=== PATIENT | male | born 1975 | race Caucasian/White ===

== ENCOUNTER 2024-12-30 12:57 | Inpatient (IN) | payer BC, SELFPAY ==
[2024-12-30 12:58] VITALS: BP 131/84; PULSE 65; RESP 16; TEMP 36.6; O2SAT 98; BMI 26.2
--- NOTE | 2024-12-30 13:23 | EX.ED.SAOD ---
HPI History of Present Illness Chief Complaint: Substance Abuse Informant: patient and family (Patient accompanied by his sister.) Onset/Context/Timing Onset: - (Many years.) Context: Gradual Onset Timing: Continuous Current Severity: Moderate Maximum Severity: Moderate Narrative Narrative: 49-year-old male history of alcohol abuse for many many years. Went through inpatient admission to [facility] hyponatremia and detox in the September 22 week of October. He started using again he primarily drinks vodka about a gallon a week or so. He came in today to get detox. Prior similar symptoms: Yes Recent Illness/Hospitalization: Yes PFSH PFS Medical History Depression Anxiety Alcohol abuse Home Medications ?Medication ?Instructions ?Recorded ?Last Taken ?Type clonidine HCl 0.1 mg tablet 0.1 mg PO QHS sleep 12/30/24 12/29/24 History lansoprazole 30 mg capsule,delayed 30 mg PO DAILY gerd 12/30/24 12/30/24 History release olmesartan 20 mg tablet 20 mg PO DAILY blood pressure 12/30/24 12/30/24 History propranolol 80 mg capsule,24 80 mg PO DAILY blood pressure 12/30/24 12/30/24 History hr,extended release sertraline 50 mg tablet 50 mg PO DAILY depression 12/30/24 12/30/24 History trazodone 50 mg tablet 50 mg PO QHS sleep 12/30/24 12/29/24 History Allergy/AdvReac Type Severity Reaction Status Date / Time No Known Allergies Allergy Verified 12/30/24 12:59 Social History Smoking Status: Unknown if ever smoked ROS ROS ED ROS Narrative Denies recent illness. Constitutional Constitutional ED: Denies chills or fever(s) ENT ENT ED: Denies ear pain Cardiovascular Cardiovascular: Denies chest pain Respiratory/Chest Respiratory/Chest: Denies cough or dyspnea Gastrointestinal Gastrointestinal: Denies abdominal pain, diarrhea, melena, nausea or vomiting Genitourinary Genitourinary ED: Denies dysuria Musculoskeletal Musculoskeletal: Denies arthralgias Integumentary Denies abscess Neurologic Neurologic: Denies headache(s) Psychiatric Psychiatric: Denies anxiety Endocrine Endocrinology: Denies cold intolerance Hematologic/Lymphatic Hematologic/Lymphatic: Denies easy bleeding Allergic/Immunologic Allergic/Immunologic ED: Denies mouth swelling EXAM Physical Exam Narrative Exam Narrative: 49-year-old male no acute distress vital signs stable afebrile. Sister in the room with him. H EENT exam pupils round reactive light. Extra motions are intact. Neck nontender. Lungs clear to auscultation bilaterally. Heart regular rate and rhythm rate about 65 no murmur. Chest wall ribs nontender. Abdomen soft nontender. No peritoneal signs. Moving all 4 extremities. Calves are nontender without edema or cords. Neurologically is awake and alert no focal motor deficits. Answer questions following commands. He ambulated the hallway without any difficulty he was walking back from the bathroom when I entered the room. Const Vital Signs: 12/30/24 12:58 12/30/24 13:57 Temperature 97.8 F Temperature Source Oral Pulse Rate 65 66 Respiratory Rate 16 18 Blood Pressure 131/84 H 130/85 H Blood Pressure Mean 99 100 Pulse Ox 98 99 Oxygen Delivery Method Room Air Room Air Positive well nourished and well developed; Negative for obese, cachectic, contractures or unkempt General Appearance ED: well developed and NAD; Negative for unkempt, cachectic, contractures or pallor Nutritional Appearance: Negative for cachectic or obese HEENT Reports moist mucous membranes atraumatic; Negative for trauma or tenderness Eyes PERRL and EOMs intact bilaterally General Eye ED: Negative for pale conjunctiva or scleral icterus Neck no lymphadenopathy, supple and no JVD Thyroid: Negative for tender Lymph Lymphatic: no lymphadenopathy noted; Negative for lymphadenopathy Chest Wall inspection of chest normal and palpation of chest normal Resp normal respiratory effort and clear to auscultation bilaterally Effort and Inspection: Negative for retractions Auscultation: Negative for rales, rhonchi, wheezes or diminished lung sounds Cardio regular rate, regular rhythm, S1 normal heart sound, S2 normal heart sound and no murmurs Rate: Negative for bradycardia or tachycardic Rhythm: Negative for abnormal rhythm Bruits: Negative for other GI soft to palpation, non-tender, non-distended and no masses Palpation: Negative for tender, guarding, rigid or mass Back/Spine no CVA tenderness General Back: Negative for CVA tenderness Cervical Spine: Negative for cervical spine tenderness Thoracic Spine / Upper Back: Negative for thoracic spinal tenderness Lumbar Spine / Lower Back: Negative for lumbar spinal tenderness Coccyx: Negative for swelling Extremity General Extremety ED: Negative for edema or tenderness General Extremity: Negative for edema Neuro oriented x3 and CN's II-XII intact bilaterally Sensorium / Orientation: alert, oriented to person, oriented to place and oriented to time; Negative for confused, lethargic or stuporous Speech: speech normal Motor Exam: strength 5/5 throughout Psych mental status grossly normal and thought process normal Appearance: Negative for unkempt Attitude: No belligerent, No agitated, No aggressive and No hostile Mood & Affect: Negative for depressed, anxious or tearful Skin General Skin Exam: Negative for jaundice or pallor Lesions: no lesions Rashes: no rashes MDM MDM MDM Narrative Medical decision making narrative: 41-year-old male history of alcohol abuse. Requesting detox. Screening labs will be obtained. Exam benign. Have the hospitalist on page for admission. Patient doing well at 2:52 PM. Will be admitted. History & Record Review Discussion w/independent historian: Patient and Family Additional record(s) reviewed:: No prior records Lab Data Attestation: I reviewed the patient's lab results. Lab results narrative: CBC normal. White count of 5. H&H 15 and 45. Platelets 266. Electrolytes show gap 12. BUN of 5 creatinine 0.6. Sodium normal 139. Liver enzymes unremarkable. Urine tox positive for cannabis. Alcohol 296. Likely intoxicated. Labs: Laboratory Results - last 24 hr 12/30/24 12/30/24 13:45 14:10 WBC 5.3 RBC 4.78 Hgb 15.5 Hct 45.7 MCV 95.6 H MCH 32.4 H MCHC 33.9 RDW Std Deviation 42.3 RDW Coeff of [place] 12.0 Plt Count 266 MPV 10.0 Immature Gran % (Auto) 0.800 Neut % (Auto) 57.5 Lymph % (Auto) 30.6 [place] % (Auto) 9.3 Eos % (Auto) 0.9 Baso % (Auto) 0.9 Absolute Neuts (auto) 3.0 Absolute Lymphs (auto) 1.62 Nucleated RBC % 0 Sodium 139 Potassium 4.0 Chloride 104 Carbon Dioxide 23.0 Anion Gap 12 BUN 5 L Creatinine 0.61 L Estim Creat Clear Calc 167.37 Est GFR (MDRD) Af Amer 182 Est GFR (MDRD) Non-Af 150 BUN/Creatinine Ratio 8.2 L Glucose 103 Calcium 8.7 Total Bilirubin 0.40 AST 38 H ALT 49 Alkaline Phosphatase 84 Total Protein 7.5 Albumin 4.0 Globulin 3.5 Albumin/Globulin Ratio 1.1 Urine Opiates Screen NEGATIVE Urine Methadone Screen NEGATIVE Ur Barbiturates Screen NEGATIVE Ur Phencyclidine Scrn NEGATIVE Ur Amphetamines Screen NEGATIVE MDMA (Ecstasy) Screen NEGATIVE U Benzodiazepines Scrn NEGATIVE Urine Cocaine Screen NEGATIVE U Cannabinoids Screen POSITIVE H Ur Drug Screen Comment Ethyl Alcohol 296.0 Discharge Plan Triage Chief Complaint: Substance Abuse ED Provider: Evans Gresham Dx/Rx/DC Orders Clinical Impression: Alcohol abuse, Admitted to alcohol detoxification center, Alcohol intoxication, History of hypertension Primary Care Provider: Freddie Hartman Disposition Disposition: Acute Care Hospital [facility]
[2024-12-30 13:57] VITALS: BP 130/85; PULSE 66; RESP 18; O2SAT 99
[2024-12-30 14:09] LABS: Absolute Lymphocyte Count 1.62 X10^3/uL (0.83-4.51); Basophil# 0.05 X10^3/uL; Basophil% 0.9 % (0-1); Eosinophil# 0.05 X10^3/uL; Eosinophils% 0.9 % (0-5); Hematocrit 45.7 % (40-54); Hemoglobin 15.5 g/dL (13.0-16.5); Lymphocyte # 1.62 X10^3/ul (0.83-4.51); Lymphocyte % 30.6 % (19-41); Mean Corp Hgb Conc 33.9 g/dL (32-36); Mean Corpuscular Hgb 32.4 pg (27.0-32.0); Mean Corpuscular Volume 95.6 fL (80-94); Monocyte# 0.49 X10^3/uL; Monocyte% 9.3 % (0-10); NRBC Flagged by Analyzer 0 % (0-5); Neutrophil # 3.04 X10^3/uL (2.7-7.7); Neutrophil % 57.5 % (47-70); Platelet Count 266 K/mm3 (150-450); RBC Distribution Width SD 42.3 fl (35.1-43.9); Red Blood Count 4.78 M/mm3 (4.6-6.2); White Blood Count 5.3 K/mm3 (4.4-11.0)
[2024-12-30 14:21] LABS: ALB/GLOB Ratio 1.1 RATIO (0.9-2.4); AST(SGOT) 38 U/L (15-37); Alanine Aminotransfer ALT/SGPT 49 U/L (16-61); Alkaline Phosphatase 84 U/L (45-117); Anion Gap 12 (5-15); BUN 5 mg/dL (7-18); BUN/Creat Ratio 8.2 RATIO (10-20); Calcium,Total 8.7 mg/dL (8.5-10.1); Chloride 104 mmol/L (98-107); Creatinine, Serum 0.61 mg/dL (0.70-1.30); EST Glomerular Filtration Rate 150 mL/min (>60); Est Glom Filt Rate - Afr Amer 182 mL/min (>60); Estimated Creatinine Clearance 167.37 ml/min; Globulin 3.5 g/dL (2.2-4.2); Glucose 103 mg/dL (74-106); Protein, Total 7.5 g/dL (6.4-8.2); Sodium Level 139 mmol/L (136-145)
--- NOTE | 2024-12-30 14:24 | PCM.HP.STD ---
HPI - General General Date of Admission: 12/30/24 Date of Service: 12/30/24 Chief Complaint: etoh detox HPI Narrative BRIAN GOMEZ, is a 49-year-old male with a history of hyponatremia, GERD, hypertension, depression, and alcohol use presented [facility] ED 12/30/2024 requesting alcohol detox. He has been drinking since high school and drinks about a gallon of vodka per week, went through detox in [place] and was treated for hyponatremia back in October at the same time however resumed drinking. Hospitalist contacted for admission. Patient evaluated with sister at bedside, patient reportedly in [facility] outpatient rehab however has been drinking roughly a gallon a week and his last drink was at noon, reports when he went through detox in October he felt shaky and anxious but denies any withdrawal seizures. Currently has no physical complaints. [facility] Medical History (Updated 12/30/24 @ 14:[address] Madie Armenta MD) Alcohol abuse Anxiety Depression Allergy/AdvReac Type Severity Reaction Status Date / Time No Known Allergies Allergy Verified 12/30/24 12:59 ROS ROS Narrative General: Denies fever/chills HENT: Denies headache, denies stuffy nose, denies sore throat EYES: Denies changes in vision Resp: Denies cough, denies shortness of breath Cardiac: Denies chest pain GI: Denies abdominal pain, denies changes in bowel, denies nausea/vomiting : Denies changes in urination Extremity: Denies swelling MSK: Denies weakness Neuro: Denies any numbness/tingling Heme: Denies any bleeding or bruising Skin: Denies rashes Psychiatric: Recent stressors Vital Signs Vital Signs Vital Signs: 12/30/24 12:58 Temperature 97.8 F Temperature Source Oral Pulse Rate 65 Respiratory Rate 16 Blood Pressure 131/84 H Blood Pressure Mean 99 Pulse Ox 98 Oxygen Delivery Method Room Air Weight Weight: 90.038 kg Body Mass Index (BMI) 26.2 Physical Exam Narrative General: Alert, oriented, no apparent distress HEENT: Atraumatic, normocephalic Eyes: Anicteric, normal conjunctiva, extraocular movements grossly intact Neck: Supple Respiratory: Clear to auscultation bilaterally, normal respiratory effort Cardiovascular: Regular rate and rhythm GI: Soft, nontender, nondistended Extremities: No edema Musculoskeletal: Moving all extremities Neuro: No overt focal neurological deficits Skin: No rashes appreciated Psych: Cooperative Results Lab / Micro Data 12/30/24 13:45 12/30/24 13:45 Labs: Laboratory Results - last 24 hr 12/30/24 13:45: WBC 5.3, RBC 4.78, Hgb 15.5, Hct 45.7, MCV 95.6 H, MCH 32.4 H, MCHC 33.9, RDW Std Deviation 42.3, RDW Coeff of Eugene 12.0, Plt Count 266, MPV 10.0, Immature Gran % (Auto) 0.800, Neut % (Auto) 57.5, Lymph % (Auto) 30.6, [place] % (Auto) 9.3, Eos % (Auto) 0.9, Baso % (Auto) 0.9, Absolute Neuts (auto) 3.0, Absolute Lymphs (auto) 1.62, Nucleated RBC % 0, Sodium 139, Potassium 4.0, Chloride 104, Carbon Dioxide 23.0, Anion Gap 12, BUN 5 L, Creatinine 0.61 L, Estim Creat Clear Calc 167.37, Est GFR (MDRD) Af Amer 182, Est GFR (MDRD) Non-Af 150, BUN/Creatinine Ratio 8.2 L, Glucose 103, Calcium 8.7, Total Bilirubin 0.40, AST 38 H, ALT 49, Alkaline Phosphatase 84, Total Protein 7.5, Albumin 4.0, Globulin 3.5, Albumin/Globulin Ratio 1.1 12/30/24 14:10: Ur Drug Screen Comment Assessment & Plan Assessment/Plan (1) Alcohol abuse: (2) GERD (gastroesophageal reflux disease): (3) Depression: (4) HTN (hypertension): PLAN: Plan #Alcohol use disorder - We will begin CIWA every 4 for 24 hours, then every 6 for 24 hours, then every 12 until discharge -Will begin phenobarbital taper -Gabapentin 300 mg every 8 as needed -Will start Bentyl and hydroxyzine as needed as well as loperamide as needed -Trazodone 100 mg p.o. nightly as needed sleep -Begin thiamine and folic acid supplementation -Zofran as needed for nausea -Case management consult to assist with discharge planning -EtOH pending, last drink at noon -UDS pending, patient reports occasional THC use but denies any other substance use -Patient does presently follow with [facility] outpatient rehab in [place] #Hypertension -Continue home ARB #Depression/anxiety -Continue home medications #GERD -Continue PPI #DVT ppx: Low risk, ambulatory Madie Armenta MD Time spent in the patient's overall evaluation,decision-making process, review of diagnostic data, adjustment of management, discussion with other providers, nursing nursing and ancillary staff involved in patient's care documentation, 56 Minutes Charges/Coding Visit Charges Inpatient E&M: 04775 Init Hosp L2
[2024-12-30 14:42] LABS: Amphetamine Urine NEGATIVE (<1000 ng/mL); Barbiturate Urine VISTA NEGATIVE (< 200 ng/mL); Benzodiazepine Urine VISTA NEGATIVE (< 200 ng/mL); Cocaine Urine VISTA NEGATIVE (< 300 ng/mL); Ecstacy Urine VISTA NEGATIVE (< 500 ng/mL); Methadone Urine VISTA NEGATIVE (< 300 ng/mL); PCP Urine VISTA NEGATIVE (< 25 ng/mL); THC Urine VISTA POSITIVE (< 50 ng/mL); Vista UDS pH Range 6
[2024-12-30 14:44] VITALS: BP 131/65; PULSE 69; RESP 18; TEMP 36.7; O2SAT 100
[2024-12-30 15:27] VITALS: BP 117/75; PULSE 79; RESP 16; TEMP 36.6; O2SAT 95; BMI 26.2
[2024-12-30] MEDS: Phenobarbital 32.4 MG Tablet 64.8 MG PO ×2 (16:07→20:01)
[2024-12-30 16:43] LABS: Prothrombin Time (Protime)PT. 12.9 SECONDS (11.7-14.9)
--- NOTE | 2024-12-30 17:59 | ADDICTION ---
Pt was met with to complete the RAMP assessment, ASAM, DUDIT, AUDIT, TUAN, MSE, and D/C Plan. Pt presents as cooperative w/good insight into his need for follow up care after d/c from detox. Pt states he is uncertain if he wants to enter residential at this time. Pt was provided psychoeducation on his tx options an pt states he is leaning towards residential but I need more time to think about it. Pt was informed that [facility] with check in with him on Wednesday. Pt is at minimum, returning to the home he owns in [place] and following up with psychiatry at [place] [id number], AA meetings, and outpatient services through current provider Bernabe. Pt was proved a packet of information and contact info for 24hr hotlines, PSS hotline, and admission number for [facility]. Pt's sister to transport him home.
[2024-12-30 20:00] VITALS: BP 108/62; PULSE 73; RESP 16; TEMP 36.7; O2SAT 92
[2024-12-30] MEDS: cloNIDine HCl 0.1 MG Tablet PO (21:56)
[2024-12-30] MEDS: traZODone 50 MG Tablet PO (21:56)
[2024-12-31 03:55] VITALS: BP 144/100; PULSE 65; RESP 16; TEMP 36.4; O2SAT 97
[2024-12-31] MEDS: Phenobarbital 32.4 MG Tablet 64.8 MG PO ×5 (04:15→20:32)
[2024-12-31 08:28] VITALS: BP 156/95; PULSE 64; RESP 18; TEMP 36.7; O2SAT 98
[2024-12-31] MEDS: Sertraline 50 MG Tablet PO (08:32)
[2024-12-31] MEDS: Thiamine Hydrochloride 100 MG Tablet PO (08:33)
[2024-12-31] MEDS: Losartan Potassium 50 MG Tablet PO (08:33)
[2024-12-31] MEDS: Lansoprazole 15 MG Capsule.DR 30 MG PO (08:33)
[2024-12-31] MEDS: Folic Acid 1 MG Tablet PO (08:33)
[2024-12-31] MEDS: Propranolol LA 80 MG Capsule PO (08:33)
--- NOTE | 2024-12-31 10:47 | PN_ITS ---
Subjective Subjective Patient seen and examined. He is of shakes and tremors as well as anxiety due to alcohol withdrawal. His blood pressure is elevated at 156/95 this morning. Review of systems otherwise negative. Objective Data Objective Data Vital Signs: Vital Signs Temp Pulse Resp BP Pulse Ox O2 Del Method 98.1 F 64 18 156/95 H 98 Room Air 12/31/24 08:28 12/31/24 08:28 12/31/24 08:28 12/31/24 08:28 12/31/24 08:28 12/31/24 08:28 Oxygen Delivery Method Room Air Weight: 198 lb 8 oz Body Mass Index (BMI) 26.2 Intake & Output: Intake and Output for Last 24 Hours 12/29/24 12/30/24 12/31/24 23:59 23:59 23:59 Intake Total 800 / 800 Balance 800 / 800 Lab / Micro Data 12/30/24 13:45 12/30/24 13:45 Labs: Laboratory Results - last 24 hr 12/30/24 13:45: WBC 5.3, RBC 4.78, Hgb 15.5, Hct 45.7, MCV 95.6 H, MCH 32.4 H, MCHC 33.9, RDW Std Deviation 42.3, RDW Coeff of Eugene 12.0, Plt Count 266, MPV 10.0, Immature Gran % (Auto) 0.800, Neut % (Auto) 57.5, Lymph % (Auto) 30.6, [place] % (Auto) 9.3, Eos % (Auto) 0.9, Baso % (Auto) 0.9, Absolute Neuts (auto) 3.0, Absolute Lymphs (auto) 1.62, Nucleated RBC % 0, Sodium 139, Potassium 4.0, Chloride 104, Carbon Dioxide 23.0, Anion Gap 12, BUN 5 L, Creatinine 0.61 L, Estim Creat Clear Calc 167.37, Est GFR (MDRD) Af Amer 182, Est GFR (MDRD) Non-Af 150, BUN/Creatinine Ratio 8.2 L, Glucose 103, Calcium 8.7, Total Bilirubin 0.40, AST 38 H, ALT 49, Alkaline Phosphatase 84, Total Protein 7.5, Albumin 4.0, Globulin 3.5, Albumin/Globulin Ratio 1.1, Ethyl Alcohol 296.0 12/30/24 14:10: Urine Opiates Screen NEGATIVE, Urine Methadone Screen NEGATIVE, Ur Barbiturates Screen NEGATIVE, Ur Phencyclidine Scrn NEGATIVE, Ur Amphetamines Screen NEGATIVE, MDMA (Ecstasy) Screen NEGATIVE, U Benzodiazepines Scrn NEGATIVE, Urine Cocaine Screen NEGATIVE, U Cannabinoids Screen POSITIVE H, Ur Drug Screen Comment 12/30/24 16:13: PT 12.9, INR 1.0 Physical Exam Const alert and oriented x3 Constitutional Narrative: mildly anxious HEENT normocephalic, head/scalp atraumatic, moist oral mucous membranes, oropharynx normal and gingiva normal Eyes PERRL and EOMs intact bilaterally Neck no lymphadenopathy, supple and no JVD Lymph Lymphatic: no lymphadenopathy noted and no lymphedema noted Resp normal respiratory effort, normal air movement and clear to auscultation bilaterally Cardio regular rate, regular rhythm, S1 normal heart sound, S2 normal heart sound and no murmurs GI normal to inspection, nondistended, normoactive bowel sounds, soft to palpation, non-tender and non-distended Extremity normal capillary refill, no clubbing, cyanosis or edema and no calf tenderness General Extremity: no tenderness to palpation of joints or extremities Skin General Skin Exam: no breakdown Neuro CN's II-XII intact bilaterally, no focal motor deficits and no sensory deficits noted Motor Exam: strength 5/5 throughout and general weakness Psych thought process normal and cooperative Appearance: appropriate Assessment & Plan Assessment/Plan (1) Alcohol intoxication: (2) Depression: (3) GERD (gastroesophageal reflux disease): (4) History of hypertension: PLAN: Plan #Acute alcohol withdrawal * Complains of anxiety and tremors. Says she drinks about a gallon of vodka per week with his last drink being the day of admission. * On alcohol drawl protocol with phenobarbital. Monitor CIWA score. * On thiamine, folic acid and Multi-Arnulfo. Adjunctive meds for symptomatic relief. * #Hypertension: On olmesartan and propranolol #Depression and anxiety: On sertraline and trazodone #GERD: on lansoprazole. DVT prophylaxis: Low risk. Encourage ambulation. Charges/Coding Visit Charges Inpatient E&M: 07546 Subs Hosp L2
[2024-12-31 12:13] VITALS: BP 132/88; PULSE 79; RESP 16; TEMP 36.3; O2SAT 96
[2024-12-31 17:06] VITALS: BP 148/99; PULSE 72; RESP 16; TEMP 36.8; O2SAT 99
[2024-12-31] MEDS: cloNIDine HCl 0.1 MG Tablet PO (22:34)
[2024-12-31] MEDS: traZODone 50 MG Tablet PO (22:34)
[2024-12-31 23:07] VITALS: BP 135/88; PULSE 98; RESP 16; TEMP 36.8; O2SAT 98
[2025-01-01] MEDS: Phenobarbital 32.4 MG Tablet 64.8 MG PO ×5 (00:22→15:38)
[2025-01-01 04:10] VITALS: BP 151/98; PULSE 63; RESP 15; TEMP 36.1; O2SAT 98
[2025-01-01 04:14] VITALS: BP 151/98; PULSE 63; RESP 15; TEMP 36.1; O2SAT 98
[2025-01-01 08:00] VITALS: BP 148/104; PULSE 67; RESP 14; TEMP 36.8; O2SAT 98
[2025-01-01] MEDS: hydrOXYzine PAM 25 MG Capsule 50 MG PO ×2 (08:31→15:38)
[2025-01-01] MEDS: Sertraline 50 MG Tablet PO (08:43)
[2025-01-01] MEDS: Folic Acid 1 MG Tablet PO (08:43)
[2025-01-01] MEDS: Lansoprazole 15 MG Capsule.DR 30 MG PO (08:43)
[2025-01-01] MEDS: Thiamine Hydrochloride 100 MG Tablet PO (08:43)
[2025-01-01] MEDS: Propranolol LA 80 MG Capsule PO (08:44)
[2025-01-01] MEDS: Losartan Potassium 50 MG Tablet PO (08:44)
--- NOTE | 2025-01-01 08:59 | PCM.PN.HOSP ---
Reason for Visit Reason for Visit: Diagnoses Alcohol abuse, uncomplicated (12/30/24) Alcohol use, unspecified with intoxication, unspecified (12/30/24) Depression, unspecified (12/30/24) Essential (primary) hypertension (12/30/24) Gastro-esophageal reflux disease without esophagitis (12/30/24) Personal history of other diseases of the circulatory system (12/30/24) Subjective Subjective Feeling better today, but not back to baseline yet. Objective Data Objective Data Vital Signs: Vital Signs Temp Pulse Resp BP Pulse Ox O2 Del Method 36.8 C 67 14 148/104 H 98 Room Air 01/01/25 08:00 01/01/25 08:00 01/01/25 08:00 01/01/25 08:00 01/01/25 08:00 01/01/25 08:00 Oxygen Delivery Method Room Air Weight: 90.038 kg Body Mass Index (BMI) 26.2 Intake & Output: Intake and Output for Last 24 Hours 12/30/24 12/31/24 01/01/25 23:59 23:59 23:59 Intake Total 1600 / 1900 750 / 750 Balance 1600 / 1900 750 / 750 Lab / Micro Data 12/30/24 13:45 12/30/24 13:45 Physical Exam Const alert and no apparent distress HEENT head/scalp atraumatic Assessment & Plan Assessment/Plan (1) Alcohol intoxication: PLAN: Phenobarbital taper. Thiamine and folate. Pt to go to residential program today.
[2025-01-01 11:22] VITALS: BP 145/98; PULSE 75; RESP 16; TEMP 36.6; O2SAT 98
[2025-01-01] MEDS: Gabapentin 300 MG Capsule PO (11:31)
[2025-01-01] MEDS: Acetaminophen 325 MG Tablet 650 MG PO (11:31)
--- NOTE | 2025-01-01 12:13 | ADDICTION ---
Pt has agreed to residential tx. He has been approved at [facility] in [facility]. He will be picked up today. Will inform charge nurse once time is given.
--- NOTE | 2025-01-01 12:13 | PCM.DC.SUM ---
Providers Date of Admission: 12/30/24 Primary Care Physician: Dr. Freddie Hartman MD Reason For Visit: ETOH DETOX Diagnosis Discharge Diagnosis (1) Alcohol intoxication: Status: Acute Code(s): F10.929 - Alcohol use, unspecified with intoxication, unspecified Plan: Phenobarbital taper. Thiamine and folate. Pt to go to residential program today. Medications at Discharge Home Medications clonidine HCl 0.1 mg tablet 0.1 mg PO QHS sleep 12/30/24 lansoprazole 30 mg capsule,delayed release 30 mg PO DAILY gerd 12/30/24 olmesartan 20 mg tablet 20 mg PO DAILY blood pressure 12/30/24 propranolol 80 mg capsule,24 hr,extended release 80 mg PO DAILY blood pressure 12/30/24 sertraline 50 mg tablet 50 mg PO DAILY depression 12/30/24 trazodone 50 mg tablet 50 mg PO QHS sleep 12/30/24 multivitamin 1 tab PO DAILY #30 tabs 01/01/25 Weight / BMI Weight Weight: 90.038 kg Body Mass Index (BMI) 26.2 ABG / Lab / Microbiology Data 12/30/24 13:45 12/30/24 13:45 D/C Instructions Discharge Diet: No restrictions DC O2, CPAP, BIPAP Needs Home O2 Discharge instructions: No Meaningful Use Info Meaningful Use Meaningful Use Diagnoses (Choose all that apply): None applicable Ischemic Stroke Statin Dosing Therapy Reference: STATIN DOSE THERAPY REFERENCE: * Patients > 75 years receive moderate or high dose statin therapy. * Patients 75 years or YOUNGER should receive HIGH intensity statin dose unless contraindicated. You will be required to document reason for non-treatment if statin daily dose does not meet guidelines. HIGH DOSE STATIN THERAPY DAILY Atorvastatin > than or = to 40 mg Rosuvastatin > than or = to 20 mg Amlodipine + Atorvastatin > than or = to 2.5/40 mg Ezetimibe + Simvastatin 10/80 mg Simvastatin 80mg Discharge Plan Admission Admit Date/Time: 12/30/24 14:24 Primary Reason for Your Visit: alcohol withdrawal. Attending Provider: Roger Chow Primary Care Provider: Freddie Hartman Consulting Providers: Madie Armenta; Bobbi Escobar Discharge Orders/Prescriptions Prescriptions: New multivitamin Tablet 1 tab PO DAILY Qty: 30 0RF Continued clonidine HCl 0.1 mg tablet 0.1 mg PO QHS trazodone 50 mg tablet 50 mg PO QHS propranolol 80 mg capsule,extended release 24 hr 80 mg PO DAILY lansoprazole 30 mg capsule,delayed release(DR/EC) 30 mg PO DAILY olmesartan 20 mg tablet 20 mg PO DAILY sertraline 50 mg tablet 50 mg PO DAILY Patient Comments: TAKE 1/2 (ONE-HALF) OF A TABLET BY MOUTH DAILY FOR 7 DAYS then INCREASE to ONE TABLET BY MOUTH DAILY THEREAFTER Referrals / Follow Up: Freddie Hartman MD [Primary Care Provider] - Disposition Disposition (needs filled in before D/C Order can be placed): Home, Self Care Charges/Coding Visit Charges Inpatient E&M: 04762 Disch Hosp
--- NOTE | 2025-01-01 13:25 | NURSING ---
spoke with Leandro at [facility], states they will send an [employer] to pick pt up for transport. Leandro provided with phone number to the unit to have [employer] roll off driver call when he arrives.
--- NOTE | 2025-01-01 14:40 | NURSING ---
spoke with Lorenzo at [facility]- apologizes that [facility] cancelled at last minute. states they will send a operator and truck driver from their facility to come get patient. [facility] facility is [address] miles away so it will be a little bit of time before operator and truck driver arrives. he will provide the operator and truck driver with [employer] phone number and have them call when operator and truck driver arrives to [facility]
--- NOTE | 2025-01-01 16:24 | PHA.DC.MR.R ---
Pharmacy [facility] Reconciliation Pharmacy Service has performed discharge medication reconciliation for this patient. The patient's discharge medication list was reviewed for discrepancies and discrepancies were resolved. Medications at Discharge Home Medications clonidine HCl 0.1 mg tablet 0.1 mg PO QHS sleep 12/30/24 lansoprazole 30 mg capsule,delayed release 30 mg PO DAILY gerd 12/30/24 olmesartan 20 mg tablet 20 mg PO DAILY blood pressure 12/30/24 propranolol 80 mg capsule,24 hr,extended release 80 mg PO DAILY blood pressure 12/30/24 sertraline 50 mg tablet 50 mg PO DAILY depression 12/30/24 trazodone 50 mg tablet 50 mg PO QHS sleep 12/30/24 multivitamin 1 tab PO DAILY #30 tabs 01/01/25
== END 2025-01-01 16:30 | disposition other institution (70) | DRG 897 ==
LOC: ED 14:17 → MS3 14:27
PROVIDERS: Admitting Provider Internal Medicine; Emergency Provider Emergency Medicine; PCP Internal Medicine
DX: F10.129 Alcohol abuse with intoxication, unspecified (principal); F10.139 Alcohol abuse with withdrawal, unspecified; F32.A Depression, unspecified; I10 Essential (primary) hypertension; F12.90 Cannabis use, unspecified, uncomplicated; K21.9 Gastro-esophageal reflux disease without esophagitis; F41.9 Anxiety disorder, unspecified; Y90.8 Blood alcohol level of 240 mg/100 ml or more; Z79.899 Other long term (current) drug therapy
CPT/HCPCS: 36415; 80053; 80307; 82077; 85025; 85610; 99283; A4216